=== PATIENT | female | born 1965 | race African-American/Black ===

== ENCOUNTER 2016-12-21 17:35 | Inpatient (IN) | payer MEDICAID ==
[~2016-12-21] VITALS: Ht 160 cm; Wt 78.5 kg
[~2016-12-21 17:35] MED LIST: ACET-3161 PO; ALBU18HF2 IH; AMLO5TAB4 PO; CYCL5TAB PO; GABA-531 PO; HYDR25TA PO; SERT25TA74 PO; TRAM50TA3 PO
[2016-12-21] MEDS ORDERED: LIP40 PO (17:52)
[2016-12-21] MEDS ORDERED: ALBU90AE IH (17:52)
[2016-12-21] MEDS ORDERED: CLOP300T2 PO (17:52)
[2016-12-21] MEDS ORDERED: POTA99TA15 PO (17:52)
[2016-12-21] MEDS ORDERED: ALPR2TAB2 PO (17:52)
[2016-12-21 20:37] LABS: BASOPHILS % 0.9 % (0.0-2.0); EOSINOPHILS % 3.6 % (0.0-5.0); HEMOGLOBIN. 13.4 g/dL (12.0-16.0); LYMPHOCYTES % 31.1 % (20.0-50.0); MEAN CORPUSCULAR HEMOGLOBIN 28.8 pg (28.0-32.0); MEAN CORPUSCULAR VOLUME 86.2 fL (81.0-99.0); MONOCYTES % 4.3 % (2.0-8.0); NEUTROPHILS % 60.1 % (40.0-76.0); PLATELET 309 x1000/uL (130-400); RED BLOOD CELL COUNT 4.64 mill/uL (4.2-5.4); RED CELL DISTRIBUTION WIDTH 14.8 % (11.6-14.6)
[2016-12-21 20:45] LABS: CARBON DIOXIDE 27 mEq/L (21-32); CHLORIDE 104 mEq/L (98-107)
[2016-12-21 20:50] LABS: TROPONIN I < 0.02 ng/mL (0.00-0.04)
[2016-12-21] MEDS ORDERED: FENTANYL CITRATE/PF 50MCG/ML 2ML VIAL IV ONE (22:45)
[2016-12-22] MEDS ORDERED: SODIUM CHLORIDE 0.9% 1,000 ML IV ONE (00:30)
[2016-12-22] MEDS ORDERED: KETOROLAC 15MG/ML VIAL IV ONE (02:15)
[2016-12-22] MEDS ORDERED: ENOXAPARIN 80MG/0.8ML SYR SUBCUT ONE (04:30)
[2016-12-22] MEDS ORDERED: IOHEXOL-350 100 ML BOTTLE ONE (06:00)
[2016-12-22] MEDS ORDERED: SODIUM CHLORIDE 0.9% 10ML VIAL ONE (06:00)
[2016-12-22 08:10] VITALS: BP 101/51
[2016-12-22 08:37] VITALS: BP 101/51
[2016-12-22] MEDS ORDERED: ALTEPLASE 2MG/VIAL ITC ONE (10:15)
[2016-12-22] MEDS ORDERED: ALTEPLASE ITC NR (10:15)
[2016-12-22] MEDS ORDERED: SODIUM CHLORIDE 0.9% ITC NR (10:15)
[2016-12-22] MEDS ORDERED: PAPAVERINE HCL 30 MG/ML 2ML IV ONE (10:33)
[2016-12-22] MEDS ORDERED: GELATIN SPONGE,ABSORBABLE SZ 100 ONE (10:33)
[2016-12-22] MEDS ORDERED: BACITRACIN ZINC 15GM TUBE TOP ONE (10:34)
[2016-12-22] MEDS ORDERED: HEPARIN SODIUM 1,000 UNIT/1ML VIAL IV ONE (10:34)
[2016-12-22] MEDS ORDERED: NORMAL SALINE 0.9% 10 ML SYR ONE (10:34)
[2016-12-22] MEDS ORDERED: THROMBIN (BOVINE) 5000 UNITS/VIAL TOP ONE (10:34)
[2016-12-22] MEDS ORDERED: BACITRACIN 50,000 UNITS/VIAL ONE (10:35)
[2016-12-22] MEDS ORDERED: SODIUM CHLORIDE 0.9% 1,000 ML ONE (10:35)
[2016-12-22] MEDS ORDERED: LIDOCAINE HCL 1% 20ML VIAL (Pyxis) INJ ONE ×2 (10:35→11:48)
[2016-12-22] MEDS ORDERED: IODIXANOL 320MG/ML 200ML BOTTLE ONE (10:35)
[2016-12-22] MEDS ORDERED: IOHEXOL-300 100 ML BOTTLE ONE (10:36)
[2016-12-22] MEDS ORDERED: SODIUM CHLORIDE 0.9% 100 ML ONE (10:43)
[2016-12-22] MEDS ORDERED: SODIUM CHLORIDE 0.9% 500 ML IV ONE (10:43)
[2016-12-22] MEDS ORDERED: IPRATROPIUM/ALBUTEROL 0.5-3(2.5)MG/3ML NEB HHN PRN (10:45)
[2016-12-22] MEDS ORDERED: ONDANSETRON HCL 4MG/2ML VIAL IV PRN ×2 (10:45→12:00)
[2016-12-22] MEDS ORDERED: CLINDAMYCIN 600 MG in DEXTROSE 5% WATER 50 ML IV NR (11:30)
[2016-12-22] MEDS ORDERED: CEFAZOLIN SODIUM 1000MG/VIAL ONE (11:34)
[2016-12-22] MEDS ORDERED: LABETALOL HCL 20MG/4ML CARPUJECT IV PRN (12:00)
[2016-12-22] MEDS ORDERED: MEPERIDINE HCL/PF 25MG/ML CPJ IV PRN (12:00)
[2016-12-22] MEDS: GABAPENTIN 300MG CAPSULE PO SCH ×2 (13:00→18:10)
[2016-12-22] MEDS: HYDROMORPHONE HCL/PF 2MG/ML CPJ IV PRN ×3 (13:46→15:09)
[2016-12-22 16:00] VITALS: BP 143/77
[2016-12-22 18:08] LABS: CREATINE KINASE MB FRACTION 1.7 ng/mL (0.5-3.6)
[2016-12-22] MEDS: RIVAROXABAN 20 MG TABLET PO SCH (18:10)
[2016-12-22] MEDS: MORPHINE SULFATE 4 MG/ML CPJ (NOT FOR IM USE) IV PRN ×2 (18:11→22:10)
[2016-12-22 18:17] LABS: TROPONIN I 0.83 ng/mL (0.00-0.04)
[2016-12-22 20:39] VITALS: BP 112/72
[2016-12-22] MEDS: ATORVASTATIN CALCIUM 40MG TABLET PO SCH (21:27)
[2016-12-22] MEDS: ACETAMINOPHEN 325MG TABLET PO PRN (21:27)
[2016-12-23 00:23] VITALS: BP 97/53
[2016-12-23 01:27] LABS: TROPONIN I 0.28 ng/mL (0.00-0.04)
[2016-12-23 01:28] LABS: CREATINE KINASE MB FRACTION 2.1 ng/mL (0.5-3.6)
[2016-12-23 04:00] VITALS: BP 107/55
[2016-12-23] MEDS: MORPHINE SULFATE 4 MG/ML CPJ (NOT FOR IM USE) IV PRN ×4 (05:32→22:14)
[2016-12-23 06:38] LABS: BASOPHILS % 0.7 % (0.0-2.0); EOSINOPHILS % 4.1 % (0.0-5.0); HEMATOCRIT. 35.8 % (36.0-48.0); HEMOGLOBIN. 11.8 g/dL (12.0-16.0); MEAN CORPUSCULAR HEMOGLOBIN 28.4 pg (28.0-32.0); MEAN CORPUSCULAR VOLUME 86.1 fL (81.0-99.0); MEAN PLATELET VOLUME 9.2 fl (7.4-10.4); MONOCYTES % 5.6 % (2.0-8.0); NEUTROPHILS % 56.6 % (40.0-76.0); PLATELET 282 x1000/uL (130-400); RED BLOOD CELL COUNT 4.15 mill/uL (4.2-5.4); RED CELL DISTRIBUTION WIDTH 14.7 % (11.6-14.6)
[2016-12-23 08:00] VITALS: BP 95/52
[2016-12-23 08:20] LABS: CARBON DIOXIDE 27 mEq/L (21-32); CHLORIDE 106 mEq/L (98-107); TROPONIN I 0.13 ng/mL (0.00-0.04)
[2016-12-23] MEDS: HYDROCHLOROTHIAZIDE 25MG TABLET PO SCH (09:00)
[2016-12-23] MEDS: AMLODIPINE 5MG TABLET PO SCH (09:00)
[2016-12-23] MEDS: SERTRALINE HCL 50MG TABLET PO SCH (10:07)
[2016-12-23] MEDS: GABAPENTIN 300MG CAPSULE PO SCH ×3 (10:07→17:00)
[2016-12-23] MEDS: ACETAMINOPHEN 325MG TABLET PO PRN (10:11)
[2016-12-23 12:00] VITALS: BP 98/54
[2016-12-23 16:00] VITALS: BP 101/50
[2016-12-23] MEDS: RIVAROXABAN 20 MG TABLET PO SCH (17:00)
[2016-12-23 20:00] VITALS: BP 122/73
[2016-12-23] MEDS: ATORVASTATIN CALCIUM 40MG TABLET PO SCH (21:43)
[2016-12-24] VITALS: BP 110/57
[2016-12-24 04:00] VITALS: BP 122/69
[2016-12-24] MEDS: MORPHINE SULFATE 4 MG/ML CPJ (NOT FOR IM USE) IV PRN (04:06)
[2016-12-24 06:05] LABS: BASOPHILS % 0.4 % (0.0-2.0); EOSINOPHILS % 4.3 % (0.0-5.0); HEMATOCRIT. 35.3 % (36.0-48.0); HEMOGLOBIN. 11.7 g/dL (12.0-16.0); LYMPHOCYTES % 28.6 % (20.0-50.0); MEAN CORPUSCULAR HEMOGLOBIN 28.7 pg (28.0-32.0); MEAN CORPUSCULAR VOLUME 86.4 fL (81.0-99.0); MONOCYTES % 4.8 % (2.0-8.0); NEUTROPHILS % 61.9 % (40.0-76.0); PLATELET 267 x1000/uL (130-400); RED BLOOD CELL COUNT 4.08 mill/uL (4.2-5.4); RED CELL DISTRIBUTION WIDTH 14.8 % (11.6-14.6)
[2016-12-24 06:42] LABS: CARBON DIOXIDE 26 mEq/L (21-32); CHLORIDE 107 mEq/L (98-107)
[2016-12-24 06:45] LABS: TROPONIN I < 0.02 ng/mL (0.00-0.04)
[2016-12-24 07:58] VITALS: BP 110/72
[2016-12-24] MEDS ORDERED: IOHEXOL-300 100 ML BOTTLE ONE ×2 (08:08→09:08)
[2016-12-24] MEDS ORDERED: LIDOCAINE HCL 1% 20ML VIAL (Pyxis) INJ ONE ×3 (08:08→10:30)
[2016-12-24] MEDS ORDERED: MIDAZOLAM HCL 2 MG/2 ML VIAL ONE (08:10)
[2016-12-24] MEDS ORDERED: FENTANYL CITRATE/PF 50MCG/ML 2ML VIAL ONE ×4 (08:10→11:14)
[2016-12-24] MEDS ORDERED: ALTEPLASE 8 MG in SODIUM CHLORIDE 0.9% 100 ML ITC NR (08:15)
[2016-12-24] MEDS ORDERED: ALTEPLASE 2MG/VIAL ITC ONE (08:15)
[2016-12-24] MEDS ORDERED: MIDAZOLAM HCL 5 MG/5 ML VIAL ONE (08:33)
[2016-12-24] MEDS: HYDROCHLOROTHIAZIDE 25MG TABLET PO SCH (08:38)
[2016-12-24] MEDS: SERTRALINE HCL 50MG TABLET PO SCH (08:39)
[2016-12-24] MEDS: GABAPENTIN 300MG CAPSULE PO SCH ×3 (08:39→17:42)
[2016-12-24] MEDS: AMLODIPINE 5MG TABLET PO SCH (08:39)
[2016-12-24] MEDS ORDERED: HEPARIN SODIUM 1,000 UNIT/1ML VIAL IV ONE ×2 (08:58→09:48)
[2016-12-24] MEDS ORDERED: IOVERSOL 240MG/ML 100ML BOTTLE IV ONE (08:58)
[2016-12-24] MEDS ORDERED: GELATIN SPONGE,ABSORBABLE SZ 100 ONE (09:47)
[2016-12-24] MEDS ORDERED: THROMBIN (BOVINE) 5000 UNITS/VIAL TOP ONE (09:48)
[2016-12-24] MEDS ORDERED: BUPIVACAINE HCL/PF 0.5% (5MG/ML) 10ML ONE (09:48)
[2016-12-24] MEDS ORDERED: BACITRACIN ZINC 15GM TUBE TOP ONE (09:48)
[2016-12-24] MEDS ORDERED: BACITRACIN 50,000 UNITS/VIAL ONE (09:49)
[2016-12-24] MEDS ORDERED: NORMAL SALINE 0.9% 10 ML SYR ONE (09:49)
[2016-12-24] MEDS ORDERED: SUCCINYLCHOLINE CHLORIDE 200MG/10ML VIAL IV ONE (10:30)
[2016-12-24] MEDS ORDERED: PHENYLEPHRINE HCL 10 MG/ML 1ML (IV VIAL) IV ONE (10:30)
[2016-12-24] MEDS ORDERED: DEXAMETHASONE 4MG/ML 1ML VIAL ONE (10:30)
[2016-12-24] MEDS ORDERED: VECURONIUM BROMIDE 10 MG/VIAL IV ONE (10:30)
[2016-12-24] MEDS ORDERED: CLINDAMYCIN 600 MG in DEXTROSE 5% WATER 50 ML IV NR (10:30)
[2016-12-24] MEDS ORDERED: PROPOFOL 200MG/20ML VIAL IV ONE (10:30)
[2016-12-24] MEDS ORDERED: ONDANSETRON HCL 4MG/2ML VIAL ONE (11:07)
[2016-12-24] MEDS ORDERED: HEPARIN 1000 UNITS/ML 10ML ONE (11:12)
[2016-12-24] MEDS ORDERED: NEOSTIGMINE METHYLSULFATE 1MG/ML 10 ML VIAL ONE (11:31)
[2016-12-24] MEDS ORDERED: GLYCOPYRROLATE 0.2 MG/ML 2ML VIAL ONE (11:31)
[2016-12-24] MEDS ORDERED: ONDANSETRON HCL 4MG/2ML VIAL IV PRN (12:00)
[2016-12-24] MEDS ORDERED: RIVAROXABAN 20 MG TABLET PO SCH (12:35)
[2016-12-24] MEDS: HYDROMORPHONE HCL/PF 2MG/ML CPJ IV PRN ×4 (12:51→22:20)
[2016-12-24 16:22] VITALS: BP 108/53
[2016-12-24] MEDS: THROAT LOZENGES-BENZOCAINE/MENTH/CETYLPYRD CL LOZENGES MM PRN ×2 (17:42→23:05)
[2016-12-24] MEDS: ACETAMINOPHEN 325MG TABLET PO PRN (20:55)
[2016-12-24 21:24] VITALS: BP 110/63
[2016-12-24] MEDS: ATORVASTATIN CALCIUM 40MG TABLET PO SCH (22:19)
[2016-12-25] VITALS: BP 118/69
[2016-12-25] MEDS: ACETAMINOPHEN 325MG TABLET PO PRN (02:34)
[2016-12-25 04:00] VITALS: BP 115/65
[2016-12-25] MEDS: HYDROMORPHONE HCL/PF 2MG/ML CPJ IV PRN (04:07)
[2016-12-25 06:39] LABS: BASOPHILS % 0.3 % (0.0-2.0); EOSINOPHILS % 1.9 % (0.0-5.0); HEMATOCRIT. 34.1 % (36.0-48.0); HEMOGLOBIN. 11.1 g/dL (12.0-16.0); LYMPHOCYTES % 23.4 % (20.0-50.0); MEAN CORPUSCULAR HEMOGLOBIN 28.2 pg (28.0-32.0); MEAN CORPUSCULAR VOLUME 86.7 fL (81.0-99.0); MEAN PLATELET VOLUME 9.2 fl (7.4-10.4); MONOCYTES % 5.4 % (2.0-8.0); PLATELET 290 x1000/uL (130-400); RED BLOOD CELL COUNT 3.93 mill/uL (4.2-5.4); RED CELL DISTRIBUTION WIDTH 14.7 % (11.6-14.6)
[2016-12-25 07:42] LABS: CARBON DIOXIDE 28 mEq/L (21-32); CHLORIDE 103 mEq/L (98-107)
[2016-12-25 08:00] VITALS: BP 112/57
[2016-12-25] MEDS: GABAPENTIN 300MG CAPSULE PO SCH (09:15)
[2016-12-25] MEDS: AMLODIPINE 5MG TABLET PO SCH (09:17)
[2016-12-25] MEDS: HYDROCHLOROTHIAZIDE 25MG TABLET PO SCH (09:17)
[2016-12-25] MEDS: SERTRALINE HCL 50MG TABLET PO SCH (09:17)
[2016-12-25 12:00] VITALS: BP 124/74
== END 2016-12-25 13:25 | disposition home or self-care (01) | DRG 169 ==
LOC: ER 18:52 → 6WST 12-22 05:32 → ENRESERV 12-22 07:01 → 6WST 12-22 09:00
PROVIDERS: ADMIT Internal Medicine; ATTEND Internal Medicine
PROC: 3E05017 Introduction of Other Thrombolytic into Peripheral Artery, Open Approach (ICD-10-PCS; 2016-12-22)
PROC: B41G1ZZ Fluoroscopy of Left Lower Extremity Arteries using Low Osmolar Contrast (ICD-10-PCS; 2016-12-22)
PROC: 04CJ3ZZ Extirpation of Matter from Left External Iliac Artery, Percutaneous Approach (ICD-10-PCS; principal; 2016-12-22 10:00)
PROC: B41G1ZZ Fluoroscopy of Left Lower Extremity Arteries using Low Osmolar Contrast (ICD-10-PCS; 2016-12-24)
PROC: 047J3ZZ Dilation of Left External Iliac Artery, Percutaneous Approach (ICD-10-PCS; 2016-12-24)
PROC: 047L3ZZ Dilation of Left Femoral Artery, Percutaneous Approach (ICD-10-PCS; 2016-12-24)
PROC: 3E05317 Introduction of Other Thrombolytic into Peripheral Artery, Percutaneous Approach (ICD-10-PCS; 2016-12-24)
PROC: 04CL3ZZ Extirpation of Matter from Left Femoral Artery, Percutaneous Approach (ICD-10-PCS; 2016-12-24)
PROC: 047Y3ZZ Dilation of Lower Artery, Percutaneous Approach (ICD-10-PCS; 2016-12-24)
DX: T82.868A Thrombosis due to vascular prosthetic devices, implants and grafts, initial encounter (principal); I11.9 Hypertensive heart disease without heart failure; J44.9 Chronic obstructive pulmonary disease, unspecified; E66.9 Obesity, unspecified; E78.5 Hyperlipidemia, unspecified; F17.200 Nicotine dependence, unspecified, uncomplicated; F51.04 Psychophysiologic insomnia; G89.29 Other chronic pain; I25.2 Old myocardial infarction; I73.9 Peripheral vascular disease, unspecified; Z79.899 Other long term (current) drug therapy; I99.8 Other disorder of circulatory system; M54.9 Dorsalgia, unspecified; F32.9 Major depressive disorder, single episode, unspecified; Z98.62 Peripheral vascular angioplasty status; Z88.2 Allergy status to sulfonamides; Z88.8 Allergy status to other drugs, medicaments and biological substances; J45.909 Unspecified asthma, uncomplicated; Y83.8 Other surgical procedures as the cause of abnormal reaction of the patient, or of later complication, without mention of misadventure at the time of the procedure; Y92.89 Other specified places as the place of occurrence of the external cause; Z68.30 Body mass index [BMI] 30.0-30.9, adult
CPT/HCPCS: 36415; 37224; 71010; 71275; 75635; 75710; 80048; 80053; 82550; 82553; 83880; 84484; 85025; 85610; 86850; 86900; 88304; 93005; 93971; 94640; 96361; 96372; 96374; 96375; 99285; A4216; C1725; C1757; C1760; C1769; C1887; C1893; C1894; J0330; J0690; J1100; J1170; J1644; J1650; J1885; J2250; J2270; J2370; J2405; J2440; J2704; J2710; J2997; J3010; J3490; J7030; J7040; J7050; J7060; J7620; Q9967

== ENCOUNTER 2017-01-19 16:15 | Inpatient (IN) | payer MEDICAID ==
[~2017-01-19] VITALS: Ht 160 cm; Wt 79.8 kg
[~2017-01-19 16:15] MED LIST changes: -ACET-3161 PO; +ALBU90AE IH; +ALPR2TAB2 PO; +LIP40 PO; +POTA99TA15 PO; -TRAM50TA3 PO
[2017-01-19] MEDS ORDERED: POVIDONE-IODINE 10% TOPICAL SOLN 240ML TOP ONE (19:00)
[2017-01-19] MEDS ORDERED: LIDOCAINE HCL 1% 20ML VIAL (Pyxis) INJ INFIL ONE (19:00)
[2017-01-19] MEDS ORDERED: HYDROCODONE/ACETAMINOPHEN 5/325MG TABLET PO ONE (19:45)
[2017-01-19 20:59] LABS: BASOPHILS % 1.4 % (0.0-2.0); EOSINOPHILS % 6.7 % (0.0-5.0); HEMATOCRIT. 35.3 % (36.0-48.0); HEMOGLOBIN. 11.7 g/dL (12.0-16.0); MEAN CORPUSCULAR HEMOGLOBIN 28.6 pg (28.0-32.0); MEAN CORPUSCULAR VOLUME 86.3 fL (81.0-99.0); MEAN PLATELET VOLUME 8.5 fl (7.4-10.4); MONOCYTES % 4.7 % (2.0-8.0); NEUTROPHILS % 48.2 % (40.0-76.0); PLATELET 271 x1000/uL (130-400); RED BLOOD CELL COUNT 4.09 mill/uL (4.2-5.4); RED CELL DISTRIBUTION WIDTH 15.9 % (11.6-14.6)
[2017-01-19 21:06] LABS: INR 1.2; PARTIAL THROMBOPLASTIN TIME 35.1 sec (23.4-31.0); PROTHROMBIN TIME 12.2 sec (9.4-11.6)
[2017-01-19 21:11] LABS: CARBON DIOXIDE 31 mEq/L (21-32); CHLORIDE 104 mEq/L (98-107)
[2017-01-19 21:12] LABS: CREATINE KINASE 65 IU/L (26-192)
[2017-01-20] VITALS (8 sets, daily range): BP systolic 101–120; BP diastolic 54–67
[2017-01-20] MEDS ORDERED: RIVA10TA PO (03:11)
[2017-01-20] MEDS ORDERED: HYDR-519 PO (03:11)
[2017-01-20] MEDS ORDERED: ASPI-1158 PO (03:11)
[2017-01-20] MEDS ORDERED: ZOLP5TAB8 PO (03:11)
[2017-01-20] MEDS ORDERED: ALBUTEROL 6.7GM HFA INHALER ORI PRN (05:00)
[2017-01-20] MEDS ORDERED: ONDANSETRON HCL 4MG/2ML VIAL IV PRN (05:00)
[2017-01-20] MEDS ORDERED: HYDROCODONE/ACETAMINOPHEN 10/325MG TABLET PO PRN ×2 (05:00→20:27)
[2017-01-20] MEDS ORDERED: ALBUTEROL (0.083%) 2.5MG/3ML NEB HHN PRN (05:15)
[2017-01-20] MEDS ORDERED: NON FORMULARY PATIENT HOME MED EA XX SCH (05:15)
[2017-01-20] MEDS: HYDROMORPHONE HCL/PF 2MG/ML CPJ IV PRN ×4 (05:35→17:58)
[2017-01-20 07:43] LABS: BASOPHILS % 0.6 % (0.0-2.0); EOSINOPHILS % 7.5 % (0.0-5.0); HEMATOCRIT. 36.8 % (36.0-48.0); HEMOGLOBIN. 12.2 g/dL (12.0-16.0); MEAN CORPUSCULAR HEMOGLOBIN 28.6 pg (28.0-32.0); MEAN CORPUSCULAR VOLUME 86.7 fL (81.0-99.0); MEAN PLATELET VOLUME 8.7 fl (7.4-10.4); MONOCYTES % 5.7 % (2.0-8.0); NEUTROPHILS % 46.2 % (40.0-76.0); PLATELET 278 x1000/uL (130-400); RED BLOOD CELL COUNT 4.25 mill/uL (4.2-5.4); RED CELL DISTRIBUTION WIDTH 15.6 % (11.6-14.6)
[2017-01-20] MEDS: CLOPIDOGREL 75MG TABLET PO SCH (08:40)
[2017-01-20] MEDS: GABAPENTIN 300MG CAPSULE PO SCH ×3 (08:41→17:57)
[2017-01-20] MEDS: SERTRALINE HCL 100MG TABLET PO SCH (08:41)
[2017-01-20] MEDS: ASPIRIN 81MG EC TABLET PO SCH (08:42)
[2017-01-20] MEDS: HYDROCHLOROTHIAZIDE 25MG TABLET PO SCH ×2 (08:42→08:43)
[2017-01-20] MEDS: POTASSIUM CHLORIDE 20MEQ TABLET SR PO SCH (08:43)
[2017-01-20] MEDS: AMLODIPINE 5MG TABLET PO SCH (08:43)
[2017-01-20 10:12] LABS: CHLORIDE 105 mEq/L (98-107)
[2017-01-20 10:18] LABS: CARBON DIOXIDE 30 mEq/L (21-32)
[2017-01-20] MEDS: RIVAROXABAN 15 MG TABLET PO SCH (17:57)
[2017-01-20] MEDS: ATORVASTATIN CALCIUM 20MG TABLET PO SCH (20:39)
[2017-01-20] MEDS: ZOLPIDEM TARTRATE 5MG TABLET PO SCH (21:00)
[2017-01-20] MEDS ORDERED: ATORVASTATIN CALCIUM 40MG TABLET PO SCH (21:00)
[2017-01-21] VITALS: BP 109/66
[2017-01-21] MEDS: HYDROMORPHONE HCL/PF 2MG/ML CPJ IV PRN ×5 (02:00→20:48)
[2017-01-21 04:00] VITALS: BP 104/60
[2017-01-21 08:00] VITALS: BP 103/60
[2017-01-21] MEDS: HYDROCHLOROTHIAZIDE 25MG TABLET PO SCH (08:51)
[2017-01-21] MEDS: POTASSIUM CHLORIDE 20MEQ TABLET SR PO SCH (08:51)
[2017-01-21] MEDS: ASPIRIN 81MG EC TABLET PO SCH (08:51)
[2017-01-21] MEDS: GABAPENTIN 300MG CAPSULE PO SCH ×3 (08:51→16:45)
[2017-01-21] MEDS: AMLODIPINE 5MG TABLET PO SCH (08:52)
[2017-01-21] MEDS: CLOPIDOGREL 75MG TABLET PO SCH (08:52)
[2017-01-21] MEDS: SERTRALINE HCL 100MG TABLET PO SCH (08:52)
[2017-01-21 12:00] VITALS: BP 111/65
[2017-01-21 16:00] VITALS: BP 110/63
[2017-01-21] MEDS: RIVAROXABAN 15 MG TABLET PO SCH ×2 (16:46→17:29)
[2017-01-21 20:00] VITALS: BP 101/56
[2017-01-21] MEDS: ATORVASTATIN CALCIUM 20MG TABLET PO SCH (20:47)
[2017-01-21] MEDS: ZOLPIDEM TARTRATE 5MG TABLET PO SCH (21:00)
[2017-01-22] VITALS: BP 118/70
[2017-01-22] MEDS: HYDROMORPHONE HCL/PF 2MG/ML CPJ IV PRN ×4 (02:00→14:20)
[2017-01-22 04:00] VITALS: BP 106/52
[2017-01-22 06:37] LABS: BASOPHILS % 0.6 % (0.0-2.0); EOSINOPHILS % 7.4 % (0.0-5.0); HEMATOCRIT. 34.6 % (36.0-48.0); HEMOGLOBIN. 11.4 g/dL (12.0-16.0); LYMPHOCYTES % 31.9 % (20.0-50.0); MEAN CORPUSCULAR HEMOGLOBIN 28.4 pg (28.0-32.0); MEAN PLATELET VOLUME 8.5 fl (7.4-10.4); NEUTROPHILS % 53.1 % (40.0-76.0); PLATELET 246 x1000/uL (130-400); RED BLOOD CELL COUNT 4.02 mill/uL (4.2-5.4); RED CELL DISTRIBUTION WIDTH 15.3 % (11.6-14.6)
[2017-01-22 07:38] LABS: CARBON DIOXIDE 29 mEq/L (21-32); CHLORIDE 101 mEq/L (98-107)
[2017-01-22 08:00] VITALS: BP 110/60
[2017-01-22] MEDS: HYDROCHLOROTHIAZIDE 25MG TABLET PO SCH (08:57)
[2017-01-22] MEDS: GABAPENTIN 300MG CAPSULE PO SCH ×2 (08:57→13:03)
[2017-01-22] MEDS: AMLODIPINE 5MG TABLET PO SCH (08:57)
[2017-01-22] MEDS: SERTRALINE HCL 100MG TABLET PO SCH (08:57)
[2017-01-22] MEDS: ASPIRIN 81MG EC TABLET PO SCH (08:57)
[2017-01-22] MEDS: POTASSIUM CHLORIDE 20MEQ TABLET SR PO SCH (08:57)
[2017-01-22] MEDS: CLOPIDOGREL 75MG TABLET PO SCH (08:59)
[2017-01-22 12:00] VITALS: BP 115/65
[2017-01-22 13:13] VITALS: BP 120/70
[2017-01-22 14:20] VITALS: BP 120/70
== END 2017-01-22 15:10 | disposition home or self-care (01) | DRG 197 ==
LOC: ER 16:15 → 8WST 21:09 → EDBEDREQ 21:49 → ENRESERV 22:58
PROVIDERS: ADMIT Internal Medicine; ATTEND Internal Medicine
PROC: 0HBRXZZ Excision of Toe Nail, External Approach (ICD-10-PCS; principal; 2017-01-21)
DX: I73.9 Peripheral vascular disease, unspecified (principal); D68.59 Other primary thrombophilia; I11.9 Hypertensive heart disease without heart failure; E78.5 Hyperlipidemia, unspecified; J44.9 Chronic obstructive pulmonary disease, unspecified; L60.0 Ingrowing nail; F32.9 Major depressive disorder, single episode, unspecified; Z79.01 Long term (current) use of anticoagulants; Z79.82 Long term (current) use of aspirin; Z79.899 Other long term (current) drug therapy; Z86.718 Personal history of other venous thrombosis and embolism; Z87.891 Personal history of nicotine dependence; Z88.1 Allergy status to other antibiotic agents; Z88.2 Allergy status to sulfonamides; Z88.8 Allergy status to other drugs, medicaments and biological substances; Z95.820 Peripheral vascular angioplasty status with implants and grafts
CPT/HCPCS: 36415; 71010; 72148; 80048; 82550; 83735; 85025; 85610; 85730; 93005; 93923; 93970; 99285; J1170

== ENCOUNTER 2017-01-24 17:18 | Emergency (ER) | payer MEDICAID ==
[~2017-01-24] VITALS: Ht 160 cm; Wt 80.0 kg
[~2017-01-24 17:18] MED LIST changes: +ASPI-1158 PO; +HYDR-519 PO; +RIVA10TA PO; +ZOLP5TAB8 PO
[2017-01-24] MEDS ORDERED: KETOROLAC 60MG/2ML VIAL IM ONE (20:15)
[2017-01-24] MEDS ORDERED: MORPHINE SULFATE 10 MG/ML CPJ IM ONE (21:15)
[2017-01-24] MEDS ORDERED: ONDANSETRON HCL 4MG/2ML VIAL IM ONE (21:15)
[2017-01-24 22:06] VITALS: BP 141/92
== END 2017-01-24 22:39 | disposition home or self-care (01) ==
LOC: ER 17:18
DX: M79.605 Pain in left leg (principal); J44.9 Chronic obstructive pulmonary disease, unspecified; F32.9 Major depressive disorder, single episode, unspecified; I10 Essential (primary) hypertension; Z86.718 Personal history of other venous thrombosis and embolism; Z79.01 Long term (current) use of anticoagulants; Z88.1 Allergy status to other antibiotic agents; Z88.3 Allergy status to other anti-infective agents; Z88.2 Allergy status to sulfonamides; Z87.891 Personal history of nicotine dependence
CPT/HCPCS: 93971; 96372; 99284; J1885; J2270; J2405; Z7610

== ENCOUNTER 2017-03-17 14:51 | Emergency (ER) | payer MEDICAID ==
[~2017-03-17] VITALS: Ht 160 cm; Wt 80.0 kg
[~2017-03-17 14:51] MED LIST changes: +CLOP75TA16 PO
[2017-03-17] MEDS ORDERED: ACETAMINOPHEN 325MG TABLET PO ONE (17:00)
[2017-03-17 17:27] VITALS: BP 110/72
== END 2017-03-17 17:28 | disposition home or self-care (01) ==
LOC: ER 15:11
DX: R20.0 Anesthesia of skin (principal); F32.9 Major depressive disorder, single episode, unspecified; I10 Essential (primary) hypertension; J44.9 Chronic obstructive pulmonary disease, unspecified; Z86.718 Personal history of other venous thrombosis and embolism; Z87.891 Personal history of nicotine dependence; Z88.1 Allergy status to other antibiotic agents; Z88.2 Allergy status to sulfonamides; Z88.8 Allergy status to other drugs, medicaments and biological substances; Z79.82 Long term (current) use of aspirin; Z79.01 Long term (current) use of anticoagulants
CPT/HCPCS: 93922; 93971; 99284

== ENCOUNTER 2017-04-02 14:34 | Emergency (ER) | payer MEDICAID ==
[~2017-04-02] VITALS: Ht 160 cm; Wt 81.0 kg
[2017-04-02] MEDS ORDERED: ACETAMINOPHEN WITH CODEINE 300/30MG TABLET PO ONE (20:15)
[2017-04-02 21:55] VITALS: BP 140/81
== END 2017-04-02 21:58 | disposition home or self-care (01) ==
LOC: ER 15:35
DX: S80.12XA Contusion of left lower leg, initial encounter (principal); J44.9 Chronic obstructive pulmonary disease, unspecified; I10 Essential (primary) hypertension; F32.9 Major depressive disorder, single episode, unspecified; Z79.82 Long term (current) use of aspirin; Z88.0 Allergy status to penicillin; Z88.1 Allergy status to other antibiotic agents; Z88.8 Allergy status to other drugs, medicaments and biological substances; X58.XXXA Exposure to other specified factors, initial encounter; Y93.89 Activity, other specified; Y92.89 Other specified places as the place of occurrence of the external cause; Y99.8 Other external cause status
CPT/HCPCS: 73590; 99284

== ENCOUNTER 2017-04-14 12:05 | Emergency (ER) | payer MEDICAID ==
[~2017-04-14] VITALS: Ht 160 cm; Wt 82.0 kg
[2017-04-14] MEDS ORDERED: ACETAMINOPHEN WITH CODEINE 300/30MG TABLET PO ONE (16:15)
[2017-04-14 16:41] LABS: BASOPHILS % 0.4 % (0.0-2.0); EOSINOPHILS % 3.4 % (0.0-5.0); HEMATOCRIT. 38.2 % (36.0-48.0); HEMOGLOBIN. 12.2 g/dL (12.0-16.0); LYMPHOCYTES % 27.1 % (20.0-50.0); MEAN CORPUSCULAR HEMOGLOBIN 26.7 pg (28.0-32.0); MEAN CORPUSCULAR VOLUME 83.2 fL (81.0-99.0); MEAN PLATELET VOLUME 8.6 fl (7.4-10.4); NEUTROPHILS % 65.1 % (40.0-76.0); PLATELET 358 x1000/uL (130-400); RED BLOOD CELL COUNT 4.59 mill/uL (4.2-5.4); RED CELL DISTRIBUTION WIDTH 15.7 % (11.6-14.6)
[2017-04-14 16:43] LABS: CARBON DIOXIDE 30 mEq/L (21-32); CHLORIDE 101 mEq/L (98-107)
[2017-04-14 16:52] LABS: INR 1.1
[2017-04-14 20:56] VITALS: BP 108/68
== END 2017-04-14 20:57 | disposition home or self-care (01) ==
LOC: ER 13:19
DX: M79.672 Pain in left foot (principal); J44.9 Chronic obstructive pulmonary disease, unspecified; I10 Essential (primary) hypertension; F32.9 Major depressive disorder, single episode, unspecified; Z79.01 Long term (current) use of anticoagulants; Z79.02 Long term (current) use of antithrombotics/antiplatelets; Z79.82 Long term (current) use of aspirin; Z88.0 Allergy status to penicillin; Z86.718 Personal history of other venous thrombosis and embolism; Z90.710 Acquired absence of both cervix and uterus; Z98.890 Other specified postprocedural states
CPT/HCPCS: 29515; 36415; 73630; 80053; 85025; 85610; 93971; 99285